=== PATIENT | male | born 1955 | race Caucasian/White ===

== ENCOUNTER 2016-09-30 13:18 | Outpatient (CLI) | payer MEDICARE, BC ==
[2016-09-30 14:08] LABS: MEAN CORPUSCULAR HEMOGLOBIN 33.9 pg (27.0-33.4); MEAN CORPUSCULAR HGB CONC 34.6 g/dL (32.0-36.0); MEAN CORPUSCULAR VOLUME 98 fl (80-97); RED BLOOD COUNT 2.34 10^6/uL (4.35-5.55); RED CELL DISTRIBUTION WIDTH 17.5 % (11.5-14.0); WHITE BLOOD COUNT 3.8 10^3/uL (4.0-10.5)
[2016-09-30] MEDS ORDERED: ACETAMINOPHEN 325 MG TABLET PO PRN (14:21)
[2016-09-30] MEDS ORDERED: NORMAL SALINE 1000 ML 1,000 ML IV PRN (14:22)
[2016-09-30] MEDS ORDERED: NORMAL SALINE 10 ML SDV (AFTER EACH USE) IV PRN (14:23)
[2016-09-30] MEDS ORDERED: DIPHENHYDRAMINE HCL 25 MG CAPSULE PO PRN (14:24)
[2016-09-30] MEDS ORDERED: FUROSEMIDE INJ/PF 20 MG/2 ML SDV IV SCH (14:30)
[2016-09-30] MEDS ORDERED: NORMAL SALINE 10 ML SDV (SCHEDULED) IV SCH (22:00)
[2016-09-30] MEDS ORDERED: ALBUTEROL SULFATE HFA (90 MCG/PUFF) 200 PUFF/8.5 GM MDI IH PRN (22:13)
[2016-09-30] MEDS ORDERED: ALBUTEROL SULFATE HFA (90 MCG/PUFF) 200 PUFF/8.5 GM MDI IH ONE (22:16)
[2016-09-30 23:52] VITALS: BP 107/64
== END 2016-10-01 00:10 | disposition home or self-care (01) ==
LOC: LAB 13:18 → 2N 13:21 → LAB 10-01 00:10
PROVIDERS: ATTEND Specialist
PROC: 30243R1 Transfusion of Nonautologous Platelets into Central Vein, Percutaneous Approach (ICD-10-PCS; principal; 2016-09-30)
DX: D64.9 Anemia, unspecified (principal); C34.91 Malignant neoplasm of unspecified part of right bronchus or lung
CPT/HCPCS: 86900; 86901; 36415; 36430; 86850; 86920; P9016; P9035; A9270; J1642; J3490

== ENCOUNTER → 2016-10-12 | Outpatient (CLI) | payer MEDICARE, BC | LOC: RAD 11:35 | PROVIDERS: ATTEND Specialist | DX: C34.91 Malignant neoplasm of unspecified part of right bronchus or lung (principal) | CPT/HCPCS: 82565; 72158; A9577 ==

== ENCOUNTER 2016-10-16 07:04 | Emergency (ER) | payer MEDICARE, BC ==
[2016-10-16] MEDS ORDERED: MORPHINE SULFATE 10 MG/ML INJ IV ONE ×2 (07:55→09:20)
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
[2016-10-16 08:55] LABS: ABSOLUTE LYMPHOCYTES (AUTO) 0.9 10^3/uL (0.5-4.7); ABSOLUTE MONOCYTES (AUTO) 0.6 10^3/uL (0.1-1.4); ABSOLUTE NEUT (AUTO) 3.2 10^3/uL (1.7-8.2); BASOPHILS % (AUTO) 0.2 % (0-2); EOSINOPHILS % (AUTO) 0.3 % (0-6); HEMATOCRIT 30.5 % (37.9-51.0); HEMOGLOBIN 10.1 g/dL (13.5-17.0); HGB HCT DIFFERENCE -0.2; LYMPHOCYTES % (AUTO) 18.2 % (13-45); MEAN CORPUSCULAR HEMOGLOBIN 32.9 pg (27.0-33.4); MEAN CORPUSCULAR VOLUME 100 fl (80-97); MONOCYTES % (AUTO) 13.7 % (3-13); RED BLOOD COUNT 3.06 10^6/uL (4.35-5.55); RED CELL DISTRIBUTION WIDTH 17.7 % (11.5-14.0); SEGMENTED NEUTROPHILS % (AUTO) 67.6 % (42-78); WHITE BLOOD COUNT 4.8 10^3/uL (4.0-10.5)
[2016-10-16 09:09] LABS: ALANINE AMINOTRANSFERASE 63 U/L (21-72); ALBUMIN 2.8 g/dL (3.5-5.0); ALKALINE PHOSPHATASE 304 U/L (38-126); ANION GAP 8 (5-19); ASPARTATE AMINO TRANSFERASE 107 U/L (17-59); BILIRUBIN,TOTAL 1.9 mg/dL (0.2-1.3); BLOOD UREA NITROGEN 14 mg/dL (7-20); CALCIUM 9.2 mg/dL (8.4-10.2); CARBON DIOXIDE 25 mmol/L (22-30); CHLORIDE 106 mmol/L (98-107); CREATININE RESULT 0.58 mg/dL (0.52-1.25); GLUCOSE 120 mg/dL (75-110); LIPASE 148.9 U/L (23-300); MAGNESIUM 1.6 mg/dL (1.6-2.3); SODIUM 138.5 mmol/L (137-145); TOTAL PROTEIN 6.5 g/dL (6.3-8.2)
[2016-10-16] MEDS ORDERED: DEXAMETHASONE SOD PHOS INJ 10 MG/1 ML VIAL IV ONE (09:21)
[2016-10-16 10:36] VITALS: BP 137/68
--- NOTE | 2016-10-16 11:02 | EKG REPORT ---
SEVERITY:- NORMAL ECG - SINUS RHYTHM : Confirmed by: Oumar Calderón MD 16-Oct-2016 11:01:28
== END 2016-10-16 10:35 | disposition home or self-care (01) ==
LOC: ER 07:04
DX: G89.29 Other chronic pain (principal); M54.5 Low back pain; M25.562 Pain in left knee; R10.10 Upper abdominal pain, unspecified; F11.23 Opioid dependence with withdrawal; C78.7 Secondary malignant neoplasm of liver and intrahepatic bile duct; C79.51 Secondary malignant neoplasm of bone; I10 Essential (primary) hypertension; J44.9 Chronic obstructive pulmonary disease, unspecified; Z96.652 Presence of left artificial knee joint; Z86.19 Personal history of other infectious and parasitic diseases; Z87.442 Personal history of urinary calculi; Z85.118 Personal history of other malignant neoplasm of bronchus and lung; Z85.05 Personal history of malignant neoplasm of liver
CPT/HCPCS: 93005; 36591; 96376; 99284; 96374; 96375; 36415; 87040; 83690; 83735; 85025; 80053; 71010; 93010; J2270; J1100

== ENCOUNTER → 2016-11-04 | Outpatient (CLI) | payer MEDICARE, BC | LOC: OD 11:22 | PROVIDERS: ATTEND Specialist | DX: R07.9 Chest pain, unspecified (principal); R06.02 Shortness of breath | CPT/HCPCS: 71020 ==

== ENCOUNTER 2016-11-15 12:55 | Inpatient (IN) | payer MEDICARE, BC ==
[2016-11-15] MEDS ORDERED: OXYCODONE HCL IR 5 MG TABLET PO PRN (13:48)
[2016-11-15] MEDS: OXYCODONE HCL IR 5 MG TABLET PO PRN ×2 (14:29→18:27)
[2016-11-15 14:43] LABS: HEMATOCRIT 28.5 % (37.9-51.0); HEMOGLOBIN 9.6 g/dL (13.5-17.0); HGB HCT DIFFERENCE 0.3; MEAN CORPUSCULAR HEMOGLOBIN 34.5 pg (27.0-33.4); MEAN CORPUSCULAR HGB CONC 33.7 g/dL (32.0-36.0); MEAN CORPUSCULAR VOLUME 103 fl (80-97); RED BLOOD COUNT 2.78 10^6/uL (4.35-5.55); RED CELL DISTRIBUTION WIDTH 17.5 % (11.5-14.0); WHITE BLOOD COUNT 6.9 10^3/uL (4.0-10.5)
[2016-11-15] MEDS ORDERED: OXYCODONE HCL SR 40 MG TABLET PO ONE (14:45)
[2016-11-15] MEDS ORDERED: OXYCODONE HCL SR 10 MG TABLET PO ONE (14:45)
[2016-11-15] MEDS: PROMETHAZINE HCL INJ 25 MG/1 ML VIAL IV PRN (14:50)
[2016-11-15] MEDS: NORMAL SALINE 1000 ML 1,000 ML IV PRN (14:50)
[2016-11-15 15:11] LABS: ANION GAP 5 (5-19); BLOOD UREA NITROGEN 16 mg/dL (7-20); CALCIUM 8.9 mg/dL (8.4-10.2); CARBON DIOXIDE 28 mmol/L (22-30); CHLORIDE 104 mmol/L (98-107); CREATININE RESULT 0.64 mg/dL (0.52-1.25); GLUCOSE 214 mg/dL (75-110); MAGNESIUM 1.7 mg/dL (1.6-2.3); POTASSIUM 4.6 mmol/L (3.6-5.0); SODIUM 136.7 mmol/L (137-145)
[2016-11-15 15:16] LABS: BAND NEUTROPHILS % (MANUAL) 7 % (3-5); BASOPHILS % (MANUAL) 0 % (0-2); EOSINOPHILS % (MANUAL) 0 % (0-6); LYMPHOCYTES % (MANUAL) 1 % (13-45); TOTAL CELLS COUNTED 100
[2016-11-15 15:17] LABS: ANISOCYTOSIS 2+; HYPOCHROMASIA SLIGHT; OVALOCYTES SLIGHT; POIKILOCYTOSIS 1+; POLYCHROMASIA SLIGHT; SCHISTOCYTES SLIGHT; TOXIC GRANULATION 2+
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
[2016-11-15] MEDS ORDERED: FENTANYL 25 MCG/HR PATCH.TD72 TOP ONE (17:00)
[2016-11-15] MEDS ORDERED: PANTOPRAZOLE SODIUM 40 MG VIAL IV ONE (17:00)
[2016-11-15] MEDS: LORAZEPAM 1 MG TABLET PO SCH (18:27)
[2016-11-15] MEDS: DEXAMETHASONE SOD PHOSPHATE INJ 4 MG/1 ML VIAL IV SCH (18:27)
[2016-11-15] MEDS: OXYCODONE HCL SR 40 MG TABLET PO SCH (19:47)
[2016-11-15] MEDS: OXYCODONE HCL SR 10 MG TABLET PO SCH (19:48)
[2016-11-15] MEDS: ZOLPIDEM TARTRATE 5 MG TABLET PO SCH (21:41)
[2016-11-15] MEDS ORDERED: (PENDING PHARMACY ID) (Zolpidem Tartrate [Ambien] 10 MG) PO SCH (22:00)
[2016-11-16] MEDS: DEXAMETHASONE SOD PHOSPHATE INJ 4 MG/1 ML VIAL IV SCH ×4 (00:14→18:09)
[2016-11-16] MEDS: NORMAL SALINE 1000 ML 1,000 ML IV PRN ×2 (00:14→05:09)
[2016-11-16] MEDS: LORAZEPAM 1 MG TABLET PO SCH ×4 (00:14→18:08)
[2016-11-16] MEDS: OXYCODONE HCL IR 5 MG TABLET PO PRN ×6 (00:22→19:52)
[2016-11-16] MEDS: LORAZEPAM INJ 2 MG/1 ML VIAL IV PRN ×3 (01:34→19:46)
[2016-11-16] MEDS: IPRATROPIUM/ALBUTEROL 0.5-2.5 MG/3 ML AMPUL NEB PRN ×2 (05:23→12:43)
[2016-11-16] MEDS: OXYCODONE HCL SR 10 MG TABLET PO SCH ×2 (09:37→19:50)
[2016-11-16] MEDS: OXYCODONE HCL SR 40 MG TABLET PO SCH ×2 (09:38→19:49)
[2016-11-16] MEDS: PANTOPRAZOLE SODIUM 40 MG VIAL IV SCH ×2 (09:39→21:20)
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
[2016-11-16 12:20] LABS: LIPASE 296.3 U/L (23-300)
--- NOTE | 2016-11-16 15:18 | PDOC PROGRESS REPORT ---
Subjective Progress Note for:: 11/16/16 Subjective:: Reason for visit: Follow-up intractable nausea and vomiting, abdominal pain Hospital course: Per H&P "LORRAINE LUTZ is a 61 year old male Was sent as a direct admission from Dr. 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 He underwent CT scan of the chest abdomen and pelvis with findings of probable liver metastases, splenomegaly, mild ascites and diffuse osseous metastatic disease throughout the pelvis and vertebrae; interval decrease in size of the right hilar mass and aortopulmonary lymph nodes but interval increase in size of the right pleural effusion and right axillary lymph nodes with interval development of bony metastatic disease throughout the ribs. Subjective: Overall the patient states he feels much better than when he came in in fact has eaten 2 meals so far today of solid food and kept everything down. He does get short of breath with minimal exertion. He is extremely emotionally labile, often tearful when discussing his situation with nursing staff and myself. He is clearly struggling with how to proceed in the management of his disease, at times telling the staff he wants to go home with hospice and just pain control but for me indicated he wanted everything done in an effort to extend his life for as long as possible to spend as much time with his grandson as he can. He currently denies chest pain, palpitations, diarrhea , nausea vomiting, numbness tingling, headache, vision changes. ROS: per HPI plus a total of 10 systems reviewed, pertinent positives and negatives noted above, remaining systems negative. Physical Exam Vital Signs: Temp Pulse Resp BP Pulse Ox 97.6 F 88 15 129/73 H 97 11/16/16 11:17 11/16/16 12:43 11/16/16 12:43 11/16/16 11:17 11/16/16 11:17 Intake & Output 11/15/16 11/16/16 11/17/16 06:59 06:59 06:59 Intake Total 3429 Output Total 900 Balance 2529 Weight 93.5 kg Results Laboratory Results: 11/15/16 14:08 11/15/16 14:08 11/15/16 11/15/16 11/16/16 14:08 14:08 11:55 WBC 6.9 RBC 2.78 L Hgb 9.6 L Hct 28.5 L MCV 103 H MCH 34.5 H MCHC 33.7 RDW 17.5 H Plt Count 23 L* Seg Neutrophils % Not Reportable Lymphocytes % Not Reportable Monocytes % Not Reportable Eosinophils % Not Reportable Basophils % Not Reportable Absolute Neutrophils Not Reportable Absolute Lymphocytes Not Reportable Absolute Monocytes Not Reportable Absolute Eosinophils Not Reportable Absolute Basophils Not Reportable Sodium 136.7 L Potassium 4.6 Chloride 104 Carbon Dioxide 28 Anion Gap 5 BUN 16 Creatinine 0.64 Est GFR ( Amer) > 60 Est GFR (Non-Af Amer) > 60 Glucose 214 H Calcium 8.9 Magnesium 1.7 Amylase 65 Lipase 296.3 Labs reviewed, H&H holding, renal function only. Impressions: Chest X-Ray 11/15/16 16:01 IMPRESSION: Moderate lung volumes. Mild interstitial prominence without suspicious interval change. KUB X-Ray 11/15/16 16:01 IMPRESSION: Stable. Abdomen/Pelvis CT 11/16/16 06:00 IMPRESSION: 1. Suspicious appearance of the liver, heterogeneous with potential underlying metastases, mild edema and duct dilatation. 2. Hepatomegaly. 3. Mild ascites. 4. Osseous metastatic disease. Chest CT 11/16/16 06:00 IMPRESSION: Interval decrease in size the previously described right hilar mass as noted above. There is also been interval decrease in size of the multiple aortopulmonary window lymph nodes. Interval increase in size of the right pleural effusion. Interval increase in size of 1 of the right axillary lymph nodes as noted above. Interval development of bony metastatic disease as noted above. Other findings as noted above Head CT 11/16/16 06:00 IMPRESSION: MILD CHRONIC CHANGES OF ATROPHY AND MICROVASCULAR ISCHEMIA. NO ACUTE PROCESS. Status: Imported from PACS - Reports reviewed Assessment & Plan - Diagnosis (1) Dehydration Is this a current diagnosis for this admission?: YesPlan: Improved. Continue IV fluids and increase oral intake. (2) Intractable nausea and vomiting Qualifiers: Vomiting type: unspecified Qualified Code(s): R11.2 - Nausea with vomiting, unspecified Is this a current diagnosis for this admission?: YesPlan: Unclear etiology, seems resolved. Possibly related to chronic high-dose narcotic use. (3) Metastatic cancer Is this a current diagnosis for this admission?: YesPlan: Imaging confirms widely metastatic disease, with worsening axillary adenopathy and presumed malignant pleural effusion. Patient would like to proceed with thoracentesis, states he's had this done over a year ago and had a remarkable improvement in his overall condition. He is hopeful for similar result this time. This of course is complicated by his severe thrombocytopenia, see below. (4) Thrombocytopenia Is this a current diagnosis for this admission?: YesPlan: Check a CBC this afternoon and transfuse platelets if needed to increase greater than 50,000 in anticipation of thoracentesis tomorrow. (5) Continuous severe abdominal pain Is this a current diagnosis for this admission?: YesPlan: Persistent but mild. Possibly related to his metastatic disease. (6) DNR (do not resuscitate) Is this a current diagnosis for this admission?: YesPlan: Per patient's wishes - Time Time Spent with patient: 35 or more minutes Medications reviewed and adjusted accordingly: Yes Anticipated discharge: Home Within: within 48 hours
--- NOTE | 2016-11-16 15:51 | PDOC PROGRESS REPORT ---
Subjective Progress Note for:: 11/16/16 Subjective:: Nausea and vomiting are markedly improved. Please see his note sent over from the office from yesterday for details with regards to mets.He has been able to keep down his food today. Physical Exam Vital Signs: Temp Pulse Resp BP Pulse Ox 97.6 F 106 H 15 129/73 H 97 11/16/16 11:17 11/16/16 14:00 11/16/16 12:43 11/16/16 11:17 11/16/16 11:17 Intake & Output 11/15/16 11/16/16 11/17/16 06:59 06:59 06:59 Intake Total 3429 Output Total 900 Balance 2529 Weight 93.5 kg General appearance: PRESENT: mild distress Head exam: PRESENT: normocephalic Eye exam: PRESENT: EOMI, scleral icterus Ear exam: PRESENT: normal external ear exam Mouth exam: PRESENT: moist Teeth exam: PRESENT: edentulous Respiratory exam: PRESENT: rhonchi - Occ'l Cardiovascular exam: PRESENT: RRR GI/Abdominal exam: PRESENT: distended, soft Extremities exam: PRESENT: other - Left knee with replaced part malfuntion Neurological exam: PRESENT: alert, awake, CN II-XII grossly intact Psychiatric exam: PRESENT: flat affect Results Laboratory Results: 11/15/16 14:08 11/15/16 14:08 11/15/16 11/16/16 14:08 11:55 WBC 6.9 RBC 2.78 L Hgb 9.6 L Hct 28.5 L MCV 103 H MCH 34.5 H MCHC 33.7 RDW 17.5 H Plt Count 23 L* Amylase 65 Lipase 296.3 Impressions: Chest X-Ray 11/15/16 16:01 IMPRESSION: Moderate lung volumes. Mild interstitial prominence without suspicious interval change. KUB X-Ray 11/15/16 16:01 IMPRESSION: Stable. Abdomen/Pelvis CT 11/16/16 06:00 IMPRESSION: 1. Suspicious appearance of the liver, heterogeneous with potential underlying metastases, mild edema and duct dilatation. 2. Hepatomegaly. 3. Mild ascites. 4. Osseous metastatic disease. Chest CT 11/16/16 06:00 IMPRESSION: Interval decrease in size the previously described right hilar mass as noted above. There is also been interval decrease in size of the multiple aortopulmonary window lymph nodes. Interval increase in size of the right pleural effusion. Interval increase in size of 1 of the right axillary lymph nodes as noted above. Interval development of bony metastatic disease as noted above. Other findings as noted above Head CT 11/16/16 06:00 IMPRESSION: MILD CHRONIC CHANGES OF ATROPHY AND MICROVASCULAR ISCHEMIA. NO ACUTE PROCESS. Assessment & Plan - Diagnosis (1) DNR (do not resuscitate) Is this a current diagnosis for this admission?: YesPlan: Per Mr. Fraga's wishes. (2) Dehydration Is this a current diagnosis for this admission?: YesPlan: Resolving so would decrease fluids due to his low protein and risk of 3rd spacing (3) History of hepatitis C Is this a current diagnosis for this admission?: YesPlan: Has lead to cirrhosis and splenomegaly with chronic pancytopenia (4) Intractable nausea and vomiting Qualifiers: Vomiting type: unspecified Qualified Code(s): R11.2 - Nausea with vomiting, unspecified Is this a current diagnosis for this admission?: YesPlan: Improved on current regiment (5) Metastatic cancer Is this a current diagnosis for this admission?: YesPlan: Scans are overall improved except increased right effusion and ? liver. Would proceed with thoracentesis (6) Thrombocytopenia Is this a current diagnosis for this admission?: YesPlan: Would transfuse for thoracentesis. (7) Knee arthropathy Plan: Conservative - Time Time Spent with patient: 35 or more minutes Critical Time spent with patient: 25-34 minutes Medications reviewed and adjusted accordingly: Yes - Inpatient Certification Medical Necessity: Need For Continuous Telemetry Monitoring
[2016-11-16 17:18] LABS: HEMATOCRIT 25.9 % (37.9-51.0); HEMOGLOBIN 8.9 g/dL (13.5-17.0); HGB HCT DIFFERENCE 0.8; MEAN CORPUSCULAR HEMOGLOBIN 35.2 pg (27.0-33.4); MEAN CORPUSCULAR HGB CONC 34.3 g/dL (32.0-36.0); MEAN CORPUSCULAR VOLUME 103 fl (80-97); RED BLOOD COUNT 2.52 10^6/uL (4.35-5.55); RED CELL DISTRIBUTION WIDTH 17.1 % (11.5-14.0); WHITE BLOOD COUNT 5.8 10^3/uL (4.0-10.5)
[2016-11-16 17:41] LABS: PROTHROMBIN TIME 17.4 SEC (11.4-15.4)
[2016-11-16 17:52] LABS: BAND NEUTROPHILS % (MANUAL) 8 % (3-5); BASOPHILS % (MANUAL) 0 % (0-2); EOSINOPHILS % (MANUAL) 0 % (0-6); LYMPHOCYTES % (MANUAL) 5 % (13-45); TOTAL CELLS COUNTED 100
[2016-11-16 17:58] LABS: BURR CELLS SLIGHT; OVALOCYTES SLIGHT; POIKILOCYTOSIS SLIGHT; TARGET CELLS SLIGHT; TEAR DROP CELLS SLIGHT
[2016-11-16 17:59] LABS: ANISOCYTOSIS 1+
[2016-11-16] MEDS: PROMETHAZINE HCL INJ 25 MG/1 ML VIAL IV PRN ×2 (18:08→23:09)
[2016-11-16] MEDS: ZOLPIDEM TARTRATE 5 MG TABLET PO SCH (21:20)
[2016-11-17] MEDS ORDERED: MORPHINE SULFATE 10 MG/ML INJ IV PRN (00:15)
[2016-11-17 00:22] LABS: ALANINE AMINOTRANSFERASE 52 U/L (21-72); ALBUMIN 2.7 g/dL (3.5-5.0); ALKALINE PHOSPHATASE 205 U/L (38-126); ANION GAP 9 (5-19); ASPARTATE AMINO TRANSFERASE 48 U/L (17-59); BILIRUBIN,TOTAL 1.3 mg/dL (0.2-1.3); BLOOD UREA NITROGEN 19 mg/dL (7-20); CARBON DIOXIDE 24 mmol/L (22-30); CHLORIDE 107 mmol/L (98-107); CREATININE RESULT 0.63 mg/dL (0.52-1.25); GLUCOSE 128 mg/dL (75-110); POTASSIUM 4.3 mmol/L (3.6-5.0); SODIUM 139.9 mmol/L (137-145); TOTAL PROTEIN 6.5 g/dL (6.3-8.2)
[2016-11-17] MEDS: DEXAMETHASONE SOD PHOSPHATE INJ 4 MG/1 ML VIAL IV SCH ×5 (00:25→23:15)
[2016-11-17] MEDS: LORAZEPAM 1 MG TABLET PO SCH (00:38)
[2016-11-17] MEDS: LORAZEPAM INJ 2 MG/1 ML VIAL IV PRN ×3 (01:25→23:14)
[2016-11-17] MEDS: PROMETHAZINE HCL INJ 25 MG/1 ML VIAL IV PRN (05:14)
[2016-11-17] MEDS: MORPHINE SULFATE 10 MG/ML INJ IV PRN ×5 (05:31→23:14)
[2016-11-17 06:21] LABS: HEMATOCRIT 25.5 % (37.9-51.0); HEMOGLOBIN 8.8 g/dL (13.5-17.0); HGB HCT DIFFERENCE 0.9; WHITE BLOOD COUNT 5.7 10^3/uL (4.0-10.5)
[2016-11-17 06:27] LABS: MEAN CORPUSCULAR HEMOGLOBIN 34.8 pg (27.0-33.4); MEAN CORPUSCULAR HGB CONC 34.6 g/dL (32.0-36.0); MEAN CORPUSCULAR VOLUME 101 fl (80-97); RED BLOOD COUNT 2.54 10^6/uL (4.35-5.55); RED CELL DISTRIBUTION WIDTH 16.7 % (11.5-14.0)
[2016-11-17 06:39] LABS: ALANINE AMINOTRANSFERASE 55 U/L (21-72); ALBUMIN 2.9 g/dL (3.5-5.0); ALKALINE PHOSPHATASE 190 U/L (38-126); ANION GAP 9 (5-19); ASPARTATE AMINO TRANSFERASE 49 U/L (17-59); BILIRUBIN,TOTAL 1.8 mg/dL (0.2-1.3); BLOOD UREA NITROGEN 20 mg/dL (7-20); CALCIUM 9.2 mg/dL (8.4-10.2); CARBON DIOXIDE 25 mmol/L (22-30); CHLORIDE 109 mmol/L (98-107); CREATININE RESULT 0.61 mg/dL (0.52-1.25); GLUCOSE 121 mg/dL (75-110); LIPASE 152.6 U/L (23-300); MAGNESIUM 1.8 mg/dL (1.6-2.3); PHOSPHORUS 3.6 mg/dL (2.5-4.5); POTASSIUM 4.5 mmol/L (3.6-5.0); SODIUM 142.5 mmol/L (137-145); TOTAL PROTEIN 6.1 g/dL (6.3-8.2)
[2016-11-17 06:47] LABS: BASOPHILS % (MANUAL) 0 % (0-2); EOSINOPHILS % (MANUAL) 0 % (0-6); LYMPHOCYTES % (MANUAL) 12 % (13-45); TOTAL CELLS COUNTED 100
[2016-11-17 06:50] LABS: ANISOCYTOSIS 1+; TOXIC GRANULATION 1+
[2016-11-17 06:52] LABS: BAND NEUTROPHILS % (MANUAL) 8 % (3-5)
[2016-11-17] MEDS: PANTOPRAZOLE SODIUM 40 MG VIAL IV SCH ×2 (09:40→21:34)
--- NOTE | 2016-11-17 11:32 | PDOC PROGRESS REPORT ---
Subjective Progress Note for:: 11/17/16 Subjective:: Reason for visit: Follow-up intractable nausea and vomiting, abdominal pain Hospital course: Per H&P "LORRAINE LUTZ is a 61 year old male Was sent as a direct admission from Dr. 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 He underwent CT scan of the chest abdomen and pelvis with findings of probable liver metastases, splenomegaly, mild ascites and diffuse osseous metastatic disease throughout the pelvis and vertebrae; interval decrease in size of the right hilar mass and aortopulmonary lymph nodes but interval increase in size of the right pleural effusion and right axillary lymph nodes with interval development of bony metastatic disease throughout the ribs. initially the patient felt much better than when he came in, in fact ate 2 meals of solid food and kept everything down. He c/o'd short of breath with minimal exertion. He was extremely emotionally labile, often tearful when discussing his situation with nursing staff and myself. He is clearly struggling with how to proceed in the management of his disease, at times telling the staff he wants to go home with hospice and just pain control but for me indicated he wanted everything done in an effort to extend his life for as long as possible to spend as much time with his grandson as he can. Subjective: The patient had an eventful night with a significant turn for the worse regarding his mentation. He became combative, confused and noncooperative with staff so much so that he required physical and pharmaceutical restraints to keep him from harming himself and others. Nursing now reports through the course of the afternoon yesterday he showed a steady decline in his mental state with increasing confusion and extreme emotional lability. He received a dose of Ativan just prior to my arrival and is currently sedated and unable to participate in his physical exam or review of systems. ROS: Unobtainable due to mental state. Physical Exam Vital Signs: Temp Pulse Resp BP Pulse Ox 98.1 F 107 H 18 150/79 H 97 11/17/16 07:48 11/17/16 07:48 11/17/16 07:48 11/17/16 07:48 11/17/16 07:48 Intake & Output 11/16/16 11/17/16 11/18/16 06:59 06:59 06:59 Intake Total 3429 951 Output Total 900 Balance 2529 951 Weight 93.5 kg 94.2 kg EXAM GENERAL: Sedated; well developed, well nourished; no obese; nonverbal HEENT: normocephalic, atraumatic; no conjunctival injection, no scleral icterus ; oral mucosa moist; RESPIRATORY: no accessory muscle use, no increased WOB, diminished air entry bilaterally; no wheezes, rales, rhonchi; bilateral right greater than left inspiratory crackles CARDIO: no JVD; RRR; no systolic murmur; tachycardia regular GI: soft; nondistended; normal bowel sounds; no rebound, rigidity, guarding; no grimace to palpation VASCULAR: no carotid bruit; no abdominal bruit; no pallor; 2+ radial, DP pulse ; normal capillary refill EXTREMITIES: no calf tender; no palpable cords in calf; no clubbing, cyanosis , pedal edema PSYCH: Attended SKIN: warm; moist; no petechiae; no telengectasias; no jaundice; no rash NEURO: Moves all 4 extremities but will not follow commands, seems to track me around the room implying extraocular muscles intact, 2+ bilateral patellar reflexes, intact blink and gag reflex Results Laboratory Results: 11/17/16 05:20 11/17/16 05:20 11/15/16 11/16/16 11/16/16 14:08 11:55 17:03 WBC 6.9 5.8 RBC 2.78 L 2.52 L Hgb 9.6 L 8.9 L Hct 28.5 L 25.9 L MCV 103 H 103 H MCH 34.5 H 35.2 H MCHC 33.7 34.3 RDW 17.5 H 17.1 H Plt Count 23 L* 17 L* Seg Neutrophils % Not Reportable Lymphocytes % Not Reportable Monocytes % Not Reportable Eosinophils % Not Reportable Basophils % Not Reportable Absolute Neutrophils Not Reportable Absolute Lymphocytes Not Reportable Absolute Monocytes Not Reportable Absolute Eosinophils Not Reportable Absolute Basophils Not Reportable Sodium Potassium Chloride Carbon Dioxide Anion Gap BUN Creatinine Est GFR ( Amer) Est GFR (Non-Af Amer) Glucose Calcium Phosphorus Magnesium Total Bilirubin AST ALT Alkaline Phosphatase Total Protein Albumin Amylase 65 Lipase 296.3 Blood Type Antibody Screen 11/16/16 11/16/16 11/16/16 17:03 23:55 23:55 WBC RBC Hgb Hct MCV MCH MCHC RDW Plt Count Seg Neutrophils % Lymphocytes % Monocytes % Eosinophils % Basophils % Absolute Neutrophils Absolute Lymphocytes Absolute Monocytes Absolute Eosinophils Absolute Basophils Sodium 139.9 Potassium 4.3 Chloride 107 Carbon Dioxide 24 Anion Gap 9 BUN 19 Creatinine 0.63 Est GFR ( Amer) > 60 Est GFR (Non-Af Amer) > 60 Glucose 128 H Calcium 9.0 Phosphorus Magnesium Cancelled 1.8 Total Bilirubin 1.3 AST 48 ALT 52 Alkaline Phosphatase 205 H Total Protein 6.5 Albumin 2.7 L Amylase Lipase Blood Type O POSITIVE Antibody Screen NEGATIVE 11/17/16 11/17/16 05:20 05:20 WBC 5.7 RBC 2.54 L Hgb 8.8 L Hct 25.5 L MCV 101 H MCH 34.8 H MCHC 34.6 RDW 16.7 H Plt Count 17 L* Seg Neutrophils % Not Reportable Lymphocytes % Not Reportable Monocytes % Not Reportable Eosinophils % Not Reportable Basophils % Not Reportable Absolute Neutrophils Not Reportable Absolute Lymphocytes Not Reportable Absolute Monocytes Not Reportable Absolute Eosinophils Not Reportable Absolute Basophils Not Reportable Sodium 142.5 Potassium 4.5 Chloride 109 H Carbon Dioxide 25 Anion Gap 9 BUN 20 Creatinine 0.61 Est GFR ( Amer) > 60 Est GFR (Non-Af Amer) > 60 Glucose 121 H Calcium 9.2 Phosphorus 3.6 Magnesium 1.8 Total Bilirubin 1.8 H AST 49 ALT 55 Alkaline Phosphatase 190 H Total Protein 6.1 L Albumin 2.9 L Amylase Lipase 152.6 Blood Type Antibody Screen Labs reviewed, no change in his CBC, renal function still good and electrolytes unremarkable. Impressions: Chest X-Ray 11/15/16 16:01 IMPRESSION: Moderate lung volumes. Mild interstitial prominence without suspicious interval change. KUB X-Ray 11/15/16 16:01 IMPRESSION: Stable. Abdomen/Pelvis CT 11/16/16 06:00 IMPRESSION: 1. Suspicious appearance of the liver, heterogeneous with potential underlying metastases, mild edema and duct dilatation. 2. Hepatomegaly. 3. Mild ascites. 4. Osseous metastatic disease. Chest CT 11/16/16 06:00 IMPRESSION: Interval decrease in size the previously described right hilar mass as noted above. There is also been interval decrease in size of the multiple aortopulmonary window lymph nodes. Interval increase in size of the right pleural effusion. Interval increase in size of 1 of the right axillary lymph nodes as noted above. Interval development of bony metastatic disease as noted above. Other findings as noted above Head CT 11/16/16 06:00 IMPRESSION: MILD CHRONIC CHANGES OF ATROPHY AND MICROVASCULAR ISCHEMIA. NO ACUTE PROCESS. Abdomen X-Ray 11/17/16 00:00 IMPRESSION: NO RADIOGRAPHIC EVIDENCE FOR ACUTE ABDOMINAL DISEASE. Status: Imported from PACS Assessment & Plan - Diagnosis (1) Acute metabolic encephalopathy Is this a current diagnosis for this admission?: YesPlan: Unclear etiology. CT scan of the head chest abdomen and pelvis yesterday once again reviewed and showed no acute intracranial abnormality and no obvious mass or midline shift to suggest metastatic disease, however does have at least moderate microvascular disease and atrophy perhaps predisposing to the onset of encephalopathy. I suspected is related somehow to metabolic derangements associated with his liver disease. He does have markedly elevated MCV so we will check folate and B12. He has known hepatitis C with cirrhosis and suspected metastatic disease to his liver with pancytopenia and in particular a severely low thrombocytopenia and borderline INR, so will check ammonia level and lactic acid. If he fails to improve or decompensates further will need more advanced imaging of the brain as he is at risk for intracranial hemorrhage , small metastatic disease not evident on CT scanning. At present, he is too uncooperative to allow invasive procedure like lumbar puncture or prolonged procedure like MRI of the brain. Continue supportive care for now. (2) Dehydration Is this a current diagnosis for this admission?: YesPlan: Improved. Continue IV fluids and increase oral intake. (3) Intractable nausea and vomiting Qualifiers: Vomiting type: unspecified Qualified Code(s): R11.2 - Nausea with vomiting, unspecified Is this a current diagnosis for this admission?: YesPlan: Unclear etiology. Resolved (4) Metastatic cancer Is this a current diagnosis for this admission?: YesPlan: Imaging confirms widely metastatic disease, with worsening axillary adenopathy and presumed malignant pleural effusion. Patient would like to proceed with thoracentesis, states he's had this done over a year ago and had a remarkable improvement in his overall condition but his clinical deterioration and severe thrombocytopenia prevent invasive studies at this time. (5) Thrombocytopenia Is this a current diagnosis for this admission?: YesPlan: Dr. Conrad following and ordered transfusion of platelets, defer to her expertise regarding possibility of ITP/TTP in the setting of worsening mental state. (6) Continuous severe abdominal pain Is this a current diagnosis for this admission?: YesPlan: Difficult to assess at this time but no clear indication for persistent pain, clouded by his current mental state. CT of the abdomen and pelvis was reassuring for acute pathology, worrisome only for persistent metastatic disease. (7) DNR (do not resuscitate) Is this a current diagnosis for this admission?: YesPlan: Per patient's wishes. My conversations with the patient yesterday indicated he was waffling on whether to proceed with hospice, nursing staff reports multiple family members arrived last night and his son in particular is supportive of a change to hospice care. Given the extensive nature of his disease and now this sudden decline, if he fails to improve then hospice would seem entirely appropriate. - Time Time Spent with patient: 25-34 minutes
[2016-11-17 12:19] LABS: ARTERIAL BLOOD BASE EXCESS 1.6 mmol/L; ARTERIAL BLOOD O2 SATURATION 93.7 % (94-98)
[2016-11-17] MEDS: RINGERS SOLUTION,LACTATED 1,000 ML IV PRN ×2 (12:30→22:11)
--- NOTE | 2016-11-17 17:21 | PDOC PROGRESS REPORT ---
Subjective Progress Note for:: 11/17/16 Subjective:: Sedated this am and again this evening due to confusion and combativeness. Family at bedside at present time. After a lengthy discussion, they would like to consider an inpatient facility with hospice capabilities. Physical Exam Vital Signs: Temp Pulse Resp BP Pulse Ox 98.1 F 75 19 105/66 98 11/17/16 15:21 11/17/16 15:21 11/17/16 15:21 11/17/16 15:21 11/17/16 15:21 Intake & Output 11/16/16 11/17/16 11/18/16 06:59 06:59 06:59 Intake Total 3429 951 511 Output Total 900 925 Balance 2529 951 -414 Weight 93.5 kg 94.2 kg General appearance: PRESENT: disheveled Head exam: PRESENT: atraumatic, normocephalic, other - alopecia Ear exam: PRESENT: normal external ear exam Respiratory exam: PRESENT: unlabored, other - diminished at the right base Cardiovascular exam: PRESENT: RRR GI/Abdominal exam: PRESENT: normal bowel sounds, soft Neurological exam: PRESENT: altered, other - sedated Results Laboratory Results: 11/17/16 05:20 11/17/16 05:20 11/16/16 11/16/16 11/16/16 17:03 17:03 23:55 WBC 5.8 RBC 2.52 L Hgb 8.9 L Hct 25.9 L MCV 103 H MCH 35.2 H MCHC 34.3 RDW 17.1 H Plt Count 17 L* Seg Neutrophils % Not Reportable Lymphocytes % Not Reportable Monocytes % Not Reportable Eosinophils % Not Reportable Basophils % Not Reportable Absolute Neutrophils Not Reportable Absolute Lymphocytes Not Reportable Absolute Monocytes Not Reportable Absolute Eosinophils Not Reportable Absolute Basophils Not Reportable Carbonic Acid HCO3/H2CO3 Ratio ABG pH ABG pCO2 ABG pO2 ABG HCO3 ABG O2 Saturation ABG Base Excess FiO2 Sodium 139.9 Potassium 4.3 Chloride 107 Carbon Dioxide 24 Anion Gap 9 BUN 19 Creatinine 0.63 Est GFR ( Amer) > 60 Est GFR (Non-Af Amer) > 60 Glucose 128 H Lactic Acid Calcium 9.0 Phosphorus Magnesium Cancelled Total Bilirubin 1.3 AST 48 ALT 52 Alkaline Phosphatase 205 H Ammonia Total Protein 6.5 Albumin 2.7 L Lipase Vitamin B12 Folate Blood Type O POSITIVE Antibody Screen NEGATIVE 11/16/16 11/17/16 11/17/16 23:55 05:20 05:20 WBC 5.7 RBC 2.54 L Hgb 8.8 L Hct 25.5 L MCV 101 H MCH 34.8 H MCHC 34.6 RDW 16.7 H Plt Count 17 L* Seg Neutrophils % Not Reportable Lymphocytes % Not Reportable Monocytes % Not Reportable Eosinophils % Not Reportable Basophils % Not Reportable Absolute Neutrophils Not Reportable Absolute Lymphocytes Not Reportable Absolute Monocytes Not Reportable Absolute Eosinophils Not Reportable Absolute Basophils Not Reportable Carbonic Acid HCO3/H2CO3 Ratio ABG pH ABG pCO2 ABG pO2 ABG HCO3 ABG O2 Saturation ABG Base Excess FiO2 Sodium 142.5 Potassium 4.5 Chloride 109 H Carbon Dioxide 25 Anion Gap 9 BUN 20 Creatinine 0.61 Est GFR ( Amer) > 60 Est GFR (Non-Af Amer) > 60 Glucose 121 H Lactic Acid Calcium 9.2 Phosphorus 3.6 Magnesium 1.8 1.8 Total Bilirubin 1.8 H AST 49 ALT 55 Alkaline Phosphatase 190 H Ammonia Total Protein 6.1 L Albumin 2.9 L Lipase 152.6 Vitamin B12 Folate Blood Type Antibody Screen 11/17/16 11/17/16 11/17/16 11:55 14:30 14:30 WBC RBC Hgb Hct MCV MCH MCHC RDW Plt Count Seg Neutrophils % Lymphocytes % Monocytes % Eosinophils % Basophils % Absolute Neutrophils Absolute Lymphocytes Absolute Monocytes Absolute Eosinophils Absolute Basophils Carbonic Acid 1.25 HCO3/H2CO3 Ratio 20:1 ABG pH 7.42 ABG pCO2 41.4 ABG pO2 67.4 L ABG HCO3 26.2 H ABG O2 Saturation 93.7 L ABG Base Excess 1.6 FiO2 2L Sodium Potassium Chloride Carbon Dioxide Anion Gap BUN Creatinine Est GFR ( Amer) Est GFR (Non-Af Amer) Glucose Lactic Acid 1.4 Calcium Phosphorus Magnesium Total Bilirubin AST ALT Alkaline Phosphatase Ammonia 23.1 Total Protein Albumin Lipase Vitamin B12 Folate Blood Type Antibody Screen 11/17/16 14:30 WBC RBC Hgb Hct MCV MCH MCHC RDW Plt Count Seg Neutrophils % Lymphocytes % Monocytes % Eosinophils % Basophils % Absolute Neutrophils Absolute Lymphocytes Absolute Monocytes Absolute Eosinophils Absolute Basophils Carbonic Acid HCO3/H2CO3 Ratio ABG pH ABG pCO2 ABG pO2 ABG HCO3 ABG O2 Saturation ABG Base Excess FiO2 Sodium Potassium Chloride Carbon Dioxide Anion Gap BUN Creatinine Est GFR ( Amer) Est GFR (Non-Af Amer) Glucose Lactic Acid Calcium Phosphorus Magnesium Total Bilirubin AST ALT Alkaline Phosphatase Ammonia Total Protein Albumin Lipase Vitamin B12 > 1000.0 H Folate 10.60 Blood Type Antibody Screen Impressions: Chest X-Ray 11/15/16 16:01 IMPRESSION: Moderate lung volumes. Mild interstitial prominence without suspicious interval change. KUB X-Ray 11/15/16 16:01 IMPRESSION: Stable. Abdomen/Pelvis CT 11/16/16 06:00 IMPRESSION: 1. Suspicious appearance of the liver, heterogeneous with potential underlying metastases, mild edema and duct dilatation. 2. Hepatomegaly. 3. Mild ascites. 4. Osseous metastatic disease. Chest CT 11/16/16 06:00 IMPRESSION: Interval decrease in size the previously described right hilar mass as noted above. There is also been interval decrease in size of the multiple aortopulmonary window lymph nodes. Interval increase in size of the right pleural effusion. Interval increase in size of 1 of the right axillary lymph nodes as noted above. Interval development of bony metastatic disease as noted above. Other findings as noted above Head CT 11/16/16 06:00 IMPRESSION: MILD CHRONIC CHANGES OF ATROPHY AND MICROVASCULAR ISCHEMIA. NO ACUTE PROCESS. Abdomen X-Ray 11/17/16 00:00 IMPRESSION: NO RADIOGRAPHIC EVIDENCE FOR ACUTE ABDOMINAL DISEASE. Assessment & Plan - Diagnosis (1) DNR (do not resuscitate) Is this a current diagnosis for this admission?: YesPlan: Family is agreeing with his wishes and requesting an inpatient facility (2) Dehydration Is this a current diagnosis for this admission?: Yes (3) History of hepatitis C Is this a current diagnosis for this admission?: YesPlan: Affecting his counts (4) Intractable nausea and vomiting Qualifiers: Vomiting type: unspecified Qualified Code(s): R11.2 - Nausea with vomiting, unspecified Is this a current diagnosis for this admission?: YesPlan: Appears better but no po intake (5) Metastatic cancer Is this a current diagnosis for this admission?: YesPlan: Discussed mixed findings but overall poor prognosis with extensive stage small cell lung cancer in a patient with hep C and liver damage, chronic cytopenias. (6) Thrombocytopenia Is this a current diagnosis for this admission?: Yes - Time Time Spent with patient: 35 or more minutes Critical Time spent with patient: 35 or more minutes Medications reviewed and adjusted accordingly: Yes Anticipated discharge: Hospice - Inpatient Certification I certify that my determination is in accordance with my understanding of Medicare's requirements for reasonable and necessary INPATIENT services [42 CFR 412.3e].: Yes Medical Necessity: Need Close Monitoring Due to Risk of Patient Decompensation
[2016-11-18] MEDS: DEXAMETHASONE SOD PHOSPHATE INJ 4 MG/1 ML VIAL IV SCH ×3 (05:04→17:43)
[2016-11-18 06:05] LABS: HEMATOCRIT 23.9 % (37.9-51.0); HEMOGLOBIN 8.1 g/dL (13.5-17.0); HGB HCT DIFFERENCE 0.4; MEAN CORPUSCULAR HEMOGLOBIN 34.4 pg (27.0-33.4); MEAN CORPUSCULAR HGB CONC 33.9 g/dL (32.0-36.0); MEAN CORPUSCULAR VOLUME 102 fl (80-97); RED BLOOD COUNT 2.35 10^6/uL (4.35-5.55); RED CELL DISTRIBUTION WIDTH 17.3 % (11.5-14.0)
[2016-11-18 06:15] LABS: ALANINE AMINOTRANSFERASE 54 U/L (21-72); ALBUMIN 2.7 g/dL (3.5-5.0); ALKALINE PHOSPHATASE 162 U/L (38-126); ASPARTATE AMINO TRANSFERASE 43 U/L (17-59); BLOOD UREA NITROGEN 25 mg/dL (7-20); CALCIUM 9.2 mg/dL (8.4-10.2); CARBON DIOXIDE 28 mmol/L (22-30); CHLORIDE 110 mmol/L (98-107); CREATININE RESULT 0.61 mg/dL (0.52-1.25); GLUCOSE 132 mg/dL (75-110); PHOSPHORUS 3.9 mg/dL (2.5-4.5); POTASSIUM 4.6 mmol/L (3.6-5.0); SODIUM 141.9 mmol/L (137-145); TOTAL PROTEIN 5.8 g/dL (6.3-8.2)
[2016-11-18 06:19] LABS: ANION GAP 4 (5-19)
[2016-11-18 06:29] LABS: WHITE BLOOD COUNT 2.4 10^3/uL (4.0-10.5)
[2016-11-18 06:35] LABS: BAND NEUTROPHILS % (MANUAL) 7 % (3-5); BASOPHILS % (MANUAL) 0 % (0-2); EOSINOPHILS % (MANUAL) 0 % (0-6); LYMPHOCYTES % (MANUAL) 12 % (13-45); TOTAL CELLS COUNTED 100
[2016-11-18 06:40] LABS: ANISOCYTOSIS 1+; BURR CELLS SLIGHT; HYPOCHROMASIA SLIGHT; OVALOCYTES SLIGHT; POIKILOCYTOSIS 1+; TEAR DROP CELLS SLIGHT; TOXIC GRANULATION 2+
[2016-11-18] MEDS: RINGERS SOLUTION,LACTATED 1,000 ML IV PRN (08:15)
[2016-11-18] MEDS: MORPHINE SULFATE 10 MG/ML INJ IV PRN ×3 (09:28→20:20)
[2016-11-18] MEDS: PANTOPRAZOLE SODIUM 40 MG VIAL IV SCH ×2 (09:28→21:32)
[2016-11-18] MEDS ORDERED: ACETAMINOPHEN 325 MG TABLET PO PRN (09:37)
[2016-11-18] MEDS ORDERED: FENTANYL 25 MCG/HR PATCH.TD72 TOP SCH ×2 (10:00)
[2016-11-18 15:09] LABS: HEMATOCRIT 22.4 % (37.9-51.0); HGB HCT DIFFERENCE 0.7; MEAN CORPUSCULAR HEMOGLOBIN 34.9 pg (27.0-33.4); MEAN CORPUSCULAR HGB CONC 34.5 g/dL (32.0-36.0); MEAN CORPUSCULAR VOLUME 101 fl (80-97); RED BLOOD COUNT 2.22 10^6/uL (4.35-5.55); RED CELL DISTRIBUTION WIDTH 17.4 % (11.5-14.0); WHITE BLOOD COUNT 2.9 10^3/uL (4.0-10.5)
[2016-11-18 15:40] LABS: BAND NEUTROPHILS % (MANUAL) 7 % (3-5); BASOPHILS % (MANUAL) 0 % (0-2); EOSINOPHILS % (MANUAL) 0 % (0-6); LYMPHOCYTES % (MANUAL) 14 % (13-45); TOTAL CELLS COUNTED 100
[2016-11-18 15:42] LABS: TOXIC GRANULATION 1+
[2016-11-18 15:43] LABS: ANISOCYTOSIS 1+; OVALOCYTES SLIGHT; POIKILOCYTOSIS SLIGHT; POLYCHROMASIA SLIGHT; TEAR DROP CELLS SLIGHT
[2016-11-18 15:52] LABS: HEMOGLOBIN 7.7 g/dL (13.5-17.0)
--- NOTE | 2016-11-18 16:09 | PDOC PROGRESS REPORT ---
Subjective Progress Note for:: 11/18/16 Subjective:: Reason for visit: Follow-intractable nausea and vomiting, abdominal pain Hospital course: Per H&P "LORRAINE LUTZ is a 61 year old male Was sent as a direct admission from Dr. 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 He underwent CT scan of the chest abdomen and pelvis with findings of probable liver metastases, splenomegaly, mild ascites and diffuse osseous metastatic disease throughout the pelvis and vertebrae; interval decrease in size of the right hilar mass and aortopulmonary lymph nodes but interval increase in size of the right pleural effusion and right axillary lymph nodes with interval development of bony metastatic disease throughout the ribs. initially the patient felt much better than when he came in, in fact ate 2 meals of solid food and kept everything down. He c/o'd short of breath with minimal exertion. He was extremely emotionally labile, often tearful when discussing his situation with nursing staff and myself. He is clearly struggling with how to proceed in the management of his disease, at times telling the staff he wants to go home with hospice and just pain control but for me indicated he wanted everything done in an effort to extend his life for as long as possible to spend as much time with his grandson as he can. Since that time however the patient had several eventful nights with a significant turn for the worse regarding his mentation. He became combative, confused and noncooperative with staff so much so that he required physical and pharmaceutical restraints to keep him from harming himself and others. Nursing now reports a steady decline in his mental state with increasing though intermittent confusion and extreme emotional lability. After several lengthy discussions by Dr. Conrad with the family they have elected to pursue hospice care, we are awaiting [facility]'s input to decide on inpt vs home hospice. in the meantime we are transfusing in an effort to stabilize his H/H and improve his plts enough to undergo thoracentesis to alleviate some of his breathlessness. Subjective: he remains very emotionally labile and at times confused requiring additional sedative and anxiolytic meds. no complaints to me of SOA, chest pain , palpitations, N/V/D. ROS: not clear how reliable it is but as above. Physical Exam Vital Signs: Temp Pulse Resp BP Pulse Ox 97.9 F 89 14 152/69 H 97 11/18/16 13:14 11/18/16 13:14 11/18/16 13:14 11/18/16 13:14 11/18/16 13:14 Intake & Output 11/17/16 11/18/16 11/19/16 06:59 06:59 06:59 Intake Total 951 2108 631 Output Total 3450 300 Balance 951 -1342 331 Weight 94.2 kg 93 kg EXAM GENERAL: sleepy but will awaken and talk to me and follow commands; well developed, no obese; speech clear and thoughts lucid at present HEENT: normocephalic, atraumatic; no conjunctival injection, no scleral icterus ; oral mucosa moist; RESPIRATORY: no accessory muscle use, no increased WOB, diminished air entry bilaterally; no wheezes, rales, rhonchi; bilateral right greater than left inspiratory crackles persist CARDIO: no JVD; RRR; no systolic murmur; no tachycardia at present GI: soft; nondistended; normal bowel sounds; no rebound, rigidity, guarding; no grimace to palpation VASCULAR: no carotid bruit; no abdominal bruit; no pallor; 2+ radial, DP pulse ; normal capillary refill EXTREMITIES: no calf tender; no palpable cords in calf; no clubbing, cyanosis , trace bilat pedal edema PSYCH: flat affect at present SKIN: warm; moist; no petechiae; no telengectasias; no jaundice; no rash NEURO: following commands, normal patellar reflexes bilat Results Laboratory Results: 11/18/16 14:45 11/18/16 05:08 11/16/16 11/17/16 11/18/16 17:03 14:30 05:08 WBC 2.4 L D RBC 2.35 L Hgb 8.1 L Hct 23.9 L MCV 102 H MCH 34.4 H MCHC 33.9 RDW 17.3 H Plt Count 20 L* Seg Neutrophils % Not Reportable Lymphocytes % Not Reportable Monocytes % Not Reportable Eosinophils % Not Reportable Basophils % Not Reportable Absolute Neutrophils Not Reportable Absolute Lymphocytes Not Reportable Absolute Monocytes Not Reportable Absolute Eosinophils Not Reportable Absolute Basophils Not Reportable Sodium Potassium Chloride Carbon Dioxide Anion Gap BUN Creatinine Est GFR ( Amer) Est GFR (Non-Af Amer) Glucose Calcium Phosphorus Magnesium Total Bilirubin AST ALT Alkaline Phosphatase Ammonia Total Protein Albumin Vitamin B12 > 1000.0 H Folate 10.60 Blood Type O POSITIVE Antibody Screen NEGATIVE 11/18/16 11/18/16 11/18/16 05:08 05:08 14:45 WBC 2.9 L RBC 2.22 L Hgb 7.7 L Hct 22.4 L MCV 101 H MCH 34.9 H MCHC 34.5 RDW 17.4 H Plt Count 32 L Seg Neutrophils % Not Reportable Lymphocytes % Not Reportable Monocytes % Not Reportable Eosinophils % Not Reportable Basophils % Not Reportable Absolute Neutrophils Not Reportable Absolute Lymphocytes Not Reportable Absolute Monocytes Not Reportable Absolute Eosinophils Not Reportable Absolute Basophils Not Reportable Sodium 141.9 Potassium 4.6 Chloride 110 H Carbon Dioxide 28 Anion Gap 4 L BUN 25 H Creatinine 0.61 Est GFR ( Amer) > 60 Est GFR (Non-Af Amer) > 60 Glucose 132 H Calcium 9.2 Phosphorus 3.9 Magnesium 2.0 Total Bilirubin 2.0 H AST 43 ALT 54 Alkaline Phosphatase 162 H Ammonia 20.5 Total Protein 5.8 L Albumin 2.7 L Vitamin B12 Folate Blood Type Antibody Screen Labs reviewed, H&H trending down, platelets up after transfusion but only minimally so. Assessment & Plan - Diagnosis (1) Acute metabolic encephalopathy Is this a current diagnosis for this admission?: YesPlan: Unclear etiology. CT scan of the head chest abdomen and pelvis showed no acute intracranial abnormality and no obvious mass or midline shift to suggest metastatic disease, however does have at least moderate microvascular disease and atrophy perhaps predisposing to the onset of encephalopathy. I suspect is related somehow to metabolic derangements associated with his liver disease. He does have markedly elevated MCV but his folate and B12 are normal. He has known hepatitis C with cirrhosis and suspected metastatic disease to his liver with pancytopenia and in particular a severely low thrombocytopenia and borderline INR. ammonia level and lactic acid within normal limits. Waxing and waning course. Continue supportive care. (2) Dehydration Is this a current diagnosis for this admission?: YesPlan: stable (3) Intractable nausea and vomiting Qualifiers: Vomiting type: unspecified Qualified Code(s): R11.2 - Nausea with vomiting, unspecified Is this a current diagnosis for this admission?: YesPlan: Unclear etiology. Resolved (4) Metastatic cancer Is this a current diagnosis for this admission?: YesPlan: Imaging confirms widely metastatic disease, with worsening axillary adenopathy and presumed malignant pleural effusion. Patient would like to proceed with thoracentesis, states he's had this done over a year ago and had a remarkable improvement in his overall condition but his clinical deterioration and severe thrombocytopenia prevent invasive studies at this time and in spite of platelet transfusion. Dr. Conrad has ordered another transfusion for late this evening, hopefully if his platelets exceed 50,000 by morning we can perform this palliative and therapeutic thoracentesis. (5) Thrombocytopenia Is this a current diagnosis for this admission?: YesPlan: As above (6) Continuous severe abdominal pain Is this a current diagnosis for this admission?: YesPlan: Resolved. CT of the abdomen and pelvis was reassuring for acute pathology, worrisome only for persistent metastatic disease. (7) DNR (do not resuscitate) Is this a current diagnosis for this admission?: Yes - Time Time Spent with patient: 35 or more minutes Medications reviewed and adjusted accordingly: Yes Anticipated discharge: Hospice - Plan Summary Plan Summary: Plan is to continue to transfuse and attempt to get his blood level stable enough for thoracentesis in an effort to alleviate his breathlessness and offer some palliation prior to transfer for hospice care whether at home or inpatient as yet determined but hopefully in the next 24 hours.
--- NOTE | 2016-11-18 17:13 | PDOC PROGRESS REPORT ---
Subjective Progress Note for:: 11/18/16 Subjective:: Much more alert today, asking when he might go home. Physical Exam Vital Signs: Temp Pulse Resp BP Pulse Ox 98.0 F 78 19 126/63 H 100 11/18/16 16:31 11/18/16 16:31 11/18/16 16:31 11/18/16 16:31 11/18/16 16:31 Intake & Output 11/17/16 11/18/16 11/19/16 06:59 06:59 06:59 Intake Total 951 2108 631 Output Total 3450 300 Balance 951 -1342 331 Weight 94.2 kg 93 kg General appearance: PRESENT: no acute distress Head exam: PRESENT: normocephalic Eye exam: PRESENT: EOMI Respiratory exam: PRESENT: wheezes - and diminished BS on the right Cardiovascular exam: PRESENT: RRR GI/Abdominal exam: PRESENT: normal bowel sounds, soft Neurological exam: PRESENT: awake, oriented to person, oriented to situation Results Laboratory Results: 11/18/16 14:45 11/18/16 05:08 11/16/16 11/18/16 11/18/16 17:03 05:08 05:08 WBC 2.4 L D RBC 2.35 L Hgb 8.1 L Hct 23.9 L MCV 102 H MCH 34.4 H MCHC 33.9 RDW 17.3 H Plt Count 20 L* Seg Neutrophils % Not Reportable Lymphocytes % Not Reportable Monocytes % Not Reportable Eosinophils % Not Reportable Basophils % Not Reportable Absolute Neutrophils Not Reportable Absolute Lymphocytes Not Reportable Absolute Monocytes Not Reportable Absolute Eosinophils Not Reportable Absolute Basophils Not Reportable Sodium 141.9 Potassium 4.6 Chloride 110 H Carbon Dioxide 28 Anion Gap 4 L BUN 25 H Creatinine 0.61 Est GFR ( Amer) > 60 Est GFR (Non-Af Amer) > 60 Glucose 132 H Calcium 9.2 Phosphorus 3.9 Magnesium 2.0 Total Bilirubin 2.0 H AST 43 ALT 54 Alkaline Phosphatase 162 H Ammonia Total Protein 5.8 L Albumin 2.7 L Blood Type O POSITIVE Antibody Screen NEGATIVE 11/18/16 11/18/16 05:08 14:45 WBC 2.9 L RBC 2.22 L Hgb 7.7 L Hct 22.4 L MCV 101 H MCH 34.9 H MCHC 34.5 RDW 17.4 H Plt Count 32 L Seg Neutrophils % Not Reportable Lymphocytes % Not Reportable Monocytes % Not Reportable Eosinophils % Not Reportable Basophils % Not Reportable Absolute Neutrophils Not Reportable Absolute Lymphocytes Not Reportable Absolute Monocytes Not Reportable Absolute Eosinophils Not Reportable Absolute Basophils Not Reportable Sodium Potassium Chloride Carbon Dioxide Anion Gap BUN Creatinine Est GFR ( Amer) Est GFR (Non-Af Amer) Glucose Calcium Phosphorus Magnesium Total Bilirubin AST ALT Alkaline Phosphatase Ammonia 20.5 Total Protein Albumin Blood Type Antibody Screen Impressions: Chest X-Ray 11/15/16 16:01 IMPRESSION: Moderate lung volumes. Mild interstitial prominence without suspicious interval change. KUB X-Ray 11/15/16 16:01 IMPRESSION: Stable. Abdomen/Pelvis CT 11/16/16 06:00 IMPRESSION: 1. Suspicious appearance of the liver, heterogeneous with potential underlying metastases, mild edema and duct dilatation. 2. Hepatomegaly. 3. Mild ascites. 4. Osseous metastatic disease. Chest CT 11/16/16 06:00 IMPRESSION: Interval decrease in size the previously described right hilar mass as noted above. There is also been interval decrease in size of the multiple aortopulmonary window lymph nodes. Interval increase in size of the right pleural effusion. Interval increase in size of 1 of the right axillary lymph nodes as noted above. Interval development of bony metastatic disease as noted above. Other findings as noted above Head CT 11/16/16 06:00 IMPRESSION: MILD CHRONIC CHANGES OF ATROPHY AND MICROVASCULAR ISCHEMIA. NO ACUTE PROCESS. Abdomen X-Ray 11/17/16 00:00 IMPRESSION: NO RADIOGRAPHIC EVIDENCE FOR ACUTE ABDOMINAL DISEASE. Assessment & Plan - Diagnosis (1) DNR (do not resuscitate) Is this a current diagnosis for this admission?: YesPlan: Family is agreeing with his wishes and requesting an inpatient facility (2) Dehydration Is this a current diagnosis for this admission?: Yes (3) History of hepatitis C Is this a current diagnosis for this admission?: YesPlan: Unfortunately contributing to pancytopenia (4) Intractable nausea and vomiting Qualifiers: Vomiting type: unspecified Qualified Code(s): R11.2 - Nausea with vomiting, unspecified Is this a current diagnosis for this admission?: YesPlan: Seems to have resolved (5) Metastatic cancer Is this a current diagnosis for this admission?: YesPlan: Discussed mixed findings but would re-attempt to proceed with a thoracentesis (6) Thrombocytopenia Is this a current diagnosis for this admission?: YesPlan: Transfuse for possible thoracentesis - Time Time Spent with patient: 25-34 minutes Critical Time spent with patient: 15-24 minutes Medications reviewed and adjusted accordingly: Yes - Inpatient Certification Medical Necessity: Need Close Monitoring Due to Risk of Patient Decompensation
[2016-11-18] MEDS: LORAZEPAM INJ 2 MG/1 ML VIAL IV PRN (20:20)
[2016-11-19] MEDS: DEXAMETHASONE SOD PHOSPHATE INJ 4 MG/1 ML VIAL IV SCH ×5 (00:08→23:33)
[2016-11-19] MEDS ORDERED: ACETAMINOPHEN 325 MG TABLET PO PRN (01:00)
[2016-11-19] MEDS: MORPHINE SULFATE 10 MG/ML INJ IV PRN ×5 (04:21→23:42)
[2016-11-19 06:46] LABS: HEMATOCRIT 25.2 % (37.9-51.0); HEMOGLOBIN 8.6 g/dL (13.5-17.0); HGB HCT DIFFERENCE 0.6; MEAN CORPUSCULAR HGB CONC 34.1 g/dL (32.0-36.0); MEAN CORPUSCULAR VOLUME 100 fl (80-97); RED BLOOD COUNT 2.53 10^6/uL (4.35-5.55); RED CELL DISTRIBUTION WIDTH 17.6 % (11.5-14.0); WHITE BLOOD COUNT 1.9 10^3/uL (4.0-10.5)
[2016-11-19] MEDS: RINGERS SOLUTION,LACTATED 1,000 ML IV PRN (07:14)
--- NOTE | 2016-11-19 08:14 | PDOC PROGRESS REPORT ---
Subjective Progress Note for:: 11/19/16 Subjective:: Pt feeling better this am, really wants to go home but family considering hospice inpt for him Physical Exam Vital Signs: Temp Pulse Resp BP Pulse Ox 97.6 F 68 20 135/71 H 100 11/19/16 03:23 11/19/16 03:23 11/19/16 03:23 11/19/16 03:23 11/19/16 03:23 Intake & Output 11/18/16 11/19/16 11/20/16 06:59 06:59 06:59 Intake Total 2108 1797 Output Total 3450 6785 Balance -1342 -378 Weight 93 kg 96.6 kg General appearance: PRESENT: no acute distress, well-developed, well-nourished Head exam: PRESENT: atraumatic, normocephalic Eye exam: PRESENT: conjunctiva pink, EOMI, PERRLA. ABSENT: scleral icterus Ear exam: PRESENT: normal external ear exam Mouth exam: PRESENT: moist, tongue midline Neck exam: ABSENT: carotid bruit, JVD, lymphadenopathy, thyromegaly Respiratory exam: PRESENT: clear to auscultation glen. ABSENT: rales, rhonchi, wheezes Cardiovascular exam: PRESENT: RRR. ABSENT: diastolic murmur, rubs, systolic murmur Pulses: PRESENT: normal dorsalis pedis pul Vascular exam: PRESENT: normal capillary refill GI/Abdominal exam: PRESENT: normal bowel sounds, soft. ABSENT: distended, guarding, mass, organolmegaly, rebound, tenderness Rectal exam: PRESENT: deferred Extremities exam: PRESENT: full ROM. ABSENT: calf tenderness, clubbing, pedal edema Neurological exam: PRESENT: alert, awake, oriented to person, oriented to place , oriented to time, oriented to situation, CN II-XII grossly intact. ABSENT: motor sensory deficit Psychiatric exam: PRESENT: appropriate affect, normal mood. ABSENT: homicidal ideation, suicidal ideation Skin exam: PRESENT: dry, intact, warm. ABSENT: cyanosis, rash Results Laboratory Results: 11/19/16 05:20 11/18/16 05:08 11/16/16 11/18/16 11/19/16 17:03 14:45 05:20 WBC 2.9 L 1.9 L RBC 2.22 L 2.53 L Hgb 7.7 L 8.6 L Hct 22.4 L 25.2 L MCV 101 H 100 H MCH 34.9 H 34.0 H MCHC 34.5 34.1 RDW 17.4 H 17.6 H Plt Count 32 L 26 L* Seg Neutrophils % Not Reportable Lymphocytes % Not Reportable Monocytes % Not Reportable Eosinophils % Not Reportable Basophils % Not Reportable Absolute Neutrophils Not Reportable Absolute Lymphocytes Not Reportable Absolute Monocytes Not Reportable Absolute Eosinophils Not Reportable Absolute Basophils Not Reportable Blood Type O POSITIVE Antibody Screen NEGATIVE Impressions: Chest X-Ray 11/15/16 16:01 IMPRESSION: Moderate lung volumes. Mild interstitial prominence without suspicious interval change. KUB X-Ray 11/15/16 16:01 IMPRESSION: Stable. Abdomen/Pelvis CT 11/16/16 06:00 IMPRESSION: 1. Suspicious appearance of the liver, heterogeneous with potential underlying metastases, mild edema and duct dilatation. 2. Hepatomegaly. 3. Mild ascites. 4. Osseous metastatic disease. Chest CT 11/16/16 06:00 IMPRESSION: Interval decrease in size the previously described right hilar mass as noted above. There is also been interval decrease in size of the multiple aortopulmonary window lymph nodes. Interval increase in size of the right pleural effusion. Interval increase in size of 1 of the right axillary lymph nodes as noted above. Interval development of bony metastatic disease as noted above. Other findings as noted above Head CT 11/16/16 06:00 IMPRESSION: MILD CHRONIC CHANGES OF ATROPHY AND MICROVASCULAR ISCHEMIA. NO ACUTE PROCESS. Abdomen X-Ray 11/17/16 00:00 IMPRESSION: NO RADIOGRAPHIC EVIDENCE FOR ACUTE ABDOMINAL DISEASE. Assessment & Plan - Diagnosis (1) Stage 4 lung cancer Qualifiers: Laterality: right Qualified Code(s): C34.91 - Malignant neoplasm of unspecified part of right bronchus or lung Is this a current diagnosis for this admission?: YesPlan: Pt recently w/ systemic chemorx, seems ready for hospice, family and pt taking w / [facility] for inpt hospice placement (2) Acute metabolic encephalopathy Is this a current diagnosis for this admission?: YesPlan: Seems improved, likely hepatic enceph vs med related, better now, pt seems A/O x 3 now. - Time Time Spent with patient: 25-34 minutes Critical Time spent with patient: 25-34 minutes - Inpatient Certification Based on my medical assessment, after consideration of the patient's comorbidities, presenting symptoms, or acuity I expect that the services needed warrant INPATIENT care.: Yes I certify that my determination is in accordance with my understanding of Medicare's requirements for reasonable and necessary INPATIENT services [42 CFR 412.3e].: Yes Medical Necessity: Risk of Complication if Not Cared For in Hospital
[2016-11-19] MEDS ORDERED: FUROSEMIDE 40 MG TABLET PO ONE (10:30)
[2016-11-19 14:48] LABS: HEMATOCRIT 26.5 % (37.9-51.0); HEMOGLOBIN 9.1 g/dL (13.5-17.0); HGB HCT DIFFERENCE 0.8; MEAN CORPUSCULAR HEMOGLOBIN 34.2 pg (27.0-33.4); MEAN CORPUSCULAR HGB CONC 34.4 g/dL (32.0-36.0); MEAN CORPUSCULAR VOLUME 100 fl (80-97); RED BLOOD COUNT 2.66 10^6/uL (4.35-5.55); RED CELL DISTRIBUTION WIDTH 17.5 % (11.5-14.0); WHITE BLOOD COUNT 2.5 10^3/uL (4.0-10.5)
[2016-11-19 15:09] LABS: BAND NEUTROPHILS % (MANUAL) 3 % (3-5); BASOPHILS % (MANUAL) 0 % (0-2); EOSINOPHILS % (MANUAL) 0 % (0-6); LYMPHOCYTES % (MANUAL) 10 % (13-45); NUCLEATED RED BLOOD CELLS 1 /100 WBC (0); TOTAL CELLS COUNTED 100; TOXIC GRANULATION 2+; TOXIC VACUOLATION PRESENT
[2016-11-19 15:10] LABS: ANISOCYTOSIS 2+; HYPOCHROMASIA 1+; OVALOCYTES 1+; POIKILOCYTOSIS 1+; POLYCHROMASIA SLIGHT; SCHISTOCYTES SLIGHT
--- NOTE | 2016-11-19 15:53 | PDOC PROGRESS REPORT ---
Subjective Progress Note for:: 11/19/16 Subjective:: Reason for visit: Follow-intractable nausea and vomiting, abdominal pain Hospital course: Per H&P "LORRAINE LUTZ is a 61 year old male Was sent as a direct admission from Dr. 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 Since his return home he has been sick and in pain Last chemotherapy was on November 11" Patient was admitted to the hospital and started on aggressive fluid rehydration and antiemetics with good improvement in his symptoms. He underwent CT scan of the chest abdomen and pelvis with findings of probable liver metastases, splenomegaly, mild ascites and diffuse osseous metastatic disease throughout the pelvis and vertebrae; interval decrease in size of the right hilar mass and aortopulmonary lymph nodes but interval increase in size of the right pleural effusion and right axillary lymph nodes with interval development of bony metastatic disease throughout the ribs. initially the patient felt much better than when he came in, in fact ate 2 meals of solid food and kept everything down. He c/o'd short of breath with minimal exertion. He was extremely emotionally labile, often tearful when discussing his situation with nursing staff and myself. He is clearly struggling with how to proceed in the management of his disease, at times telling the staff he wants to go home with hospice and just pain control but for me indicated he wanted everything done in an effort to extend his life for as long as possible to spend as much time with his grandson as he can. Since that time however the patient had several eventful nights with a significant turn for the worse regarding his mentation. He became combative, confused and noncooperative with staff so much so that he required physical and pharmaceutical restraints to keep him from harming himself and others. Nursing now reports a steady decline in his mental state with increasing though intermittent confusion and extreme emotional lability. After several lengthy discussions by Dr. Conrad with the family they have elected to pursue hospice care, we are awaiting [facility]'s input to decide on inpt vs home hospice. in the meantime we are transfusing in an effort to stabilize his H/H and improve his plts enough to undergo thoracentesis to alleviate some of his breathlessness. Subjective: He is less confused than before and much more cooperative with staff now. Family remains at the bedside now largely 18/04 which actually seems to help. He denies chest pain, palpitations, fever, chills, with resolution of his nausea and vomiting. ROS: per HPI plus a total of 10 systems reviewed, pertinent positives and negatives noted above, remaining systems negative. Physical Exam Vital Signs: Temp Pulse Resp BP Pulse Ox 97.9 F 73 20 127/65 H 95 11/19/16 12:27 11/19/16 12:27 11/19/16 12:27 11/19/16 12:27 11/19/16 12:27 Intake & Output 11/18/16 11/19/16 11/20/16 06:59 06:59 06:59 Intake Total 2108 1797 411 Output Total 3450 2175 500 Balance -1342 -378 -89 Weight 93 kg 96.6 kg EXAM GENERAL: Awake and alert and in no acute distress; well developed, no obese; speech clear and thoughts lucid at present HEENT: normocephalic, atraumatic; no conjunctival injection, no scleral icterus ; oral mucosa moist; RESPIRATORY: no accessory muscle use, no increased WOB, diminished air entry bilaterally; no wheezes, new bibasilar rales but no rhonchi CARDIO: no JVD; RRR; no systolic murmur; no tachycardia at present GI: soft; nondistended; normal bowel sounds; no rebound, rigidity, guarding; no grimace to palpation VASCULAR: no carotid bruit; no abdominal bruit; no pallor; 2+ radial, DP pulse ; normal capillary refill EXTREMITIES: no calf tender; no palpable cords in calf; no clubbing, cyanosis , trace bilat pedal edema PSYCH: Normal mood and affect are present SKIN: warm; moist; no petechiae; no telengectasias; no jaundice; no rash NEURO: following commands, normal patellar reflexes bilat Results Laboratory Results: 11/19/16 14:15 11/18/16 05:08 11/16/16 11/18/16 11/19/16 17:03 14:45 05:20 WBC 2.9 L 1.9 L RBC 2.22 L 2.53 L Hgb 7.7 L 8.6 L Hct 22.4 L 25.2 L MCV 101 H 100 H MCH 34.9 H 34.0 H MCHC 34.5 34.1 RDW 17.4 H 17.6 H Plt Count 32 L 26 L* Seg Neutrophils % Lymphocytes % Monocytes % Eosinophils % Basophils % Absolute Neutrophils Absolute Lymphocytes Absolute Monocytes Absolute Eosinophils Absolute Basophils Blood Type O POSITIVE Antibody Screen NEGATIVE 11/19/16 14:15 WBC 2.5 L RBC 2.66 L Hgb 9.1 L Hct 26.5 L MCV 100 H MCH 34.2 H MCHC 34.4 RDW 17.5 H Plt Count 49 L Seg Neutrophils % Not Reportable Lymphocytes % Not Reportable Monocytes % Not Reportable Eosinophils % Not Reportable Basophils % Not Reportable Absolute Neutrophils Not Reportable Absolute Lymphocytes Not Reportable Absolute Monocytes Not Reportable Absolute Eosinophils Not Reportable Absolute Basophils Not Reportable Blood Type Antibody Screen Labs reviewed, developing leukopenia and persistent macrocytic anemia and thrombocytopenia. He apparently did not receive his platelet transfusion last night Assessment & Plan - Diagnosis (1) Acute metabolic encephalopathy Is this a current diagnosis for this admission?: YesPlan: Resolved. Unclear etiology. CT scan of the head chest abdomen and pelvis showed no acute intracranial abnormality and no obvious mass or midline shift to suggest metastatic disease, however does have at least moderate microvascular disease and atrophy perhaps predisposing to the onset of encephalopathy. I suspect is related somehow to metabolic derangements associated with his liver disease. He does have markedly elevated MCV but his folate and B12 are normal. He has known hepatitis C with cirrhosis and suspected metastatic disease to his liver with pancytopenia and in particular a severely low thrombocytopenia and borderline INR. ammonia level and lactic acid within normal limits. Waxing and waning course. Continue supportive care. (2) Dehydration Is this a current diagnosis for this admission?: YesPlan: Resolved and now bit on the wet side. We will hold his IV fluids and give a single dose of oral Lasix this morning. (3) Intractable nausea and vomiting Qualifiers: Vomiting type: unspecified Qualified Code(s): R11.2 - Nausea with vomiting, unspecified Is this a current diagnosis for this admission?: YesPlan: Unclear etiology. Resolved (4) Metastatic cancer Is this a current diagnosis for this admission?: YesPlan: Imaging confirms widely metastatic disease, with worsening axillary adenopathy and presumed malignant pleural effusion. Patient would like to proceed with thoracentesis, states he's had this done over a year ago and had a remarkable improvement in his overall condition but his clinical deterioration and severe thrombocytopenia prevent invasive studies at this time and in spite of platelet transfusion. Dr. Conrad has ordered another platelet transfusion, hopefully if his platelets reach 50,000 we can perform this palliative and therapeutic thoracentesis. There are no viable treatment options left for his underlying small cell carcinoma given his debilitated state he likely would not survive. As such he and the family are requesting hospice services. (5) Thrombocytopenia Is this a current diagnosis for this admission?: YesPlan: As above (6) Continuous severe abdominal pain Is this a current diagnosis for this admission?: YesPlan: Resolved. CT of the abdomen and pelvis was reassuring for acute pathology, worrisome only for persistent metastatic disease. (7) DNR (do not resuscitate) Is this a current diagnosis for this admission?: Yes - Time Time Spent with patient: 25-34 minutes Anticipated discharge: Hospice Within: within 24 hours - Plan Summary Plan Summary: Anticipate discharge tomorrow one where the other, whether or not he receives his thoracentesis. Disposition remains a bit of a mystery at this time as the family waffles between inpatient hospice and at home hospice. Case was discussed with palliative care team and [facility]
[2016-11-20] MEDS: MORPHINE SULFATE 10 MG/ML INJ IV PRN ×2 (04:14→12:00)
[2016-11-20] MEDS: DEXAMETHASONE SOD PHOSPHATE INJ 4 MG/1 ML VIAL IV SCH ×2 (06:43→11:11)
--- NOTE | 2016-11-20 10:36 | PDOC PROGRESS REPORT ---
Subjective Progress Note for:: 11/20/16 Subjective:: Today had a long discussion with patient, also had discussion with and son. Recommended going ahead with inpatient hospice care with [facility] hosp[facility]. They're unable to care from at home, and we discussed that is probably imminent. To that extent, transition to inpatient hospice would be reasonable. After long discussion, we discussed his case for about 45 minutes, they all agreed to go towards this approach. The patient also agreed. Physical Exam Vital Signs: Temp Pulse Resp BP Pulse Ox 98.1 F 78 24 H 128/65 H 98 11/20/16 03:18 11/20/16 03:18 11/20/16 03:18 11/20/16 03:18 11/20/16 03:18 Intake & Output 11/19/16 11/20/16 11/21/16 06:59 06:59 06:59 Intake Total 2097 1193 Output Total 2175 3025 Balance -78 -1832 Weight 96.6 kg 96.9 kg General appearance: PRESENT: no acute distress Head exam: PRESENT: atraumatic Eye exam: PRESENT: scleral icterus Respiratory exam: PRESENT: accessory muscle use Cardiovascular exam: PRESENT: RRR. ABSENT: diastolic murmur, rubs, systolic murmur GI/Abdominal exam: PRESENT: distended Rectal exam: PRESENT: deferred Skin exam: PRESENT: jaundice Results Laboratory Results: 11/19/16 14:15 11/18/16 05:08 11/16/16 11/19/16 17:03 14:15 WBC 2.5 L RBC 2.66 L Hgb 9.1 L Hct 26.5 L MCV 100 H MCH 34.2 H MCHC 34.4 RDW 17.5 H Plt Count 49 L Seg Neutrophils % Not Reportable Lymphocytes % Not Reportable Monocytes % Not Reportable Eosinophils % Not Reportable Basophils % Not Reportable Absolute Neutrophils Not Reportable Absolute Lymphocytes Not Reportable Absolute Monocytes Not Reportable Absolute Eosinophils Not Reportable Absolute Basophils Not Reportable Blood Type O POSITIVE Antibody Screen NEGATIVE Impressions: KUB X-Ray 11/15/16 16:01 IMPRESSION: Stable. Abdomen/Pelvis CT 11/16/16 06:00 IMPRESSION: 1. Suspicious appearance of the liver, heterogeneous with potential underlying metastases, mild edema and duct dilatation. 2. Hepatomegaly. 3. Mild ascites. 4. Osseous metastatic disease. Chest CT 11/16/16 06:00 IMPRESSION: Interval decrease in size the previously described right hilar mass as noted above. There is also been interval decrease in size of the multiple aortopulmonary window lymph nodes. Interval increase in size of the right pleural effusion. Interval increase in size of 1 of the right axillary lymph nodes as noted above. Interval development of bony metastatic disease as noted above. Other findings as noted above Head CT 11/16/16 06:00 IMPRESSION: MILD CHRONIC CHANGES OF ATROPHY AND MICROVASCULAR ISCHEMIA. NO ACUTE PROCESS. Abdomen X-Ray 11/17/16 00:00 IMPRESSION: NO RADIOGRAPHIC EVIDENCE FOR ACUTE ABDOMINAL DISEASE. Thoracentesis Ultrasound 11/19/16 00:00 IMPRESSION: SUCCESSFUL THORACENTESIS USING ULTRASOUND GUIDANCE. Chest X-Ray 11/19/16 18:11 IMPRESSION: STABLE APPEARANCE THE CHEST POST THORACENTESIS. NO PNEUMOTHORAX. Assessment & Plan - Diagnosis (1) Stage 4 lung cancer Qualifiers: Laterality: right Qualified Code(s): C34.91 - Malignant neoplasm of unspecified part of right bronchus or lung Is this a current diagnosis for this admission?: YesPlan: As above no further treatment possible her planned. Hospice inpatient planned. (2) Acute metabolic encephalopathy Is this a current diagnosis for this admission?: YesPlan: Seems improved, still confused from time to time but no further workup needed. - Time Time Spent with patient: 35 or more minutes Critical Time spent with patient: 35 or more minutes Anticipated discharge: Hospice Within: within 24 hours
[2016-11-20] MEDS ORDERED: SCOPOLAMINE HYDROBROMIDE 1.5 MG PATCH.TD72 TD ONE (11:00)
[2016-11-20] MEDS ORDERED: FUROSEMIDE 40 MG TABLET PO ONE (11:00)
--- NOTE | 2016-11-20 13:02 | PDOC DISCHARGE SUMMARY ---
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 Nevertheless, this seems to have resolved and he is back to baseline. (2) Dehydration Is this a current diagnosis for this admission?: YesSummary: Resolved with IV fluids. (3) Intractable nausea and vomiting Is this a current diagnosis for this admission?: YesSummary: Again an unclear etiology here is no acute pathologic process was ever identified. The nausea and vomiting resolved within the first 24 hours and he has been tolerating a diet ever since. (4) Metastatic cancer Is this a current diagnosis for this admission?: YesSummary: There are no good treatment options left for his metastatic small cell cancer and he and his family have elected to pursue hospice. Oncology has been involved in his care throughout his hospitalization. Please see their notes for details. (5) Thrombocytopenia Is this a current diagnosis for this admission?: YesSummary: The patient received transfusion during his hospitalization enough so to get his platelets elevated to a level allowing palliative thoracentesis for presumed malignant effusion. (6) Continuous severe abdominal pain Is this a current diagnosis for this admission?: YesSummary: Most of his pain is related to bone pain from his metastatic disease. He has not complained of abdominal pain since admission. (7) DNR (do not resuscitate) Is this a current diagnosis for this admission?: Yes - Additional Information Resuscitation Status: Do Not Resuscitate Discharge Diet: Regular Discharge Activity: Activity As Tolerated Home Medications: Fentanyl [Duragesic 25 mcg/hr Transdermal Patch] 1 patch TOP Q3DAYS 11/15/16 Oxycodone HCl [Oxycontin] 60 mg PO BID 11/15/16 Oxycodone HCl [Roxicodone] 60 mg PO Q4HP PRN 11/15/16 Zolpidem Tartrate [Ambien] 10 mg PO QHS 11/15/16 Acetaminophen [Tylenol 325 mg Tablet] 650 mg PO .BEFORE 1ST UNIT PRN tablet Ipratropium/Albuterol Sulfate [Duoneb 3 ml Ampul] 3 ml NEB RTQ6HP PRN vial.neb 11/20/16 Lorazepam [Ativan 1 mg Tablet] 0.5 mg PO Q6 tablet 11/20/16 History of Present Illness Patient complains of: Intractable nausea and vomiting with epigastric pain History of Present Illness: LORRAINE LUTZ is a 61 year old male Was sent as a direct admission from Dr. Conrad's office with chief complaint of intractable nausea vomiting epigastric pain for the past 2 days Patient has a known history of metastatic small cell CA to bone and liver Patient underwent a week ago vertebroplasty at [facility] Since his return home he has been sick and in pain Last chemotherapy was on November 11" Hospital Course Hospital Course: Patient was admitted to the hospital and started on aggressive fluid rehydration and antiemetics with good improvement in his symptoms. He underwent CT scan of the chest abdomen and pelvis with findings of probable liver metastases, splenomegaly, mild ascites and diffuse osseous metastatic disease throughout the pelvis and vertebrae; interval decrease in size of the right hilar mass and aortopulmonary lymph nodes but interval increase in size of the right pleural effusion and right axillary lymph nodes with interval development of bony metastatic disease throughout the ribs. initially the patient felt much better than when he came in, in fact ate 2 meals of solid food and kept everything down. He c/o'd short of breath with minimal exertion. He was extremely emotionally labile, often tearful when discussing his situation with nursing staff and myself. He is clearly struggling with how to proceed in the management of his disease, at times telling the staff he wants to go home with hospice and just pain control but for me indicated he wanted everything done in an effort to extend his life for as long as possible to spend as much time with his grandson as he can. Since that time however the patient had several eventful nights with a significant turn for the worse regarding his mentation. He became combative, confused and noncooperative with staff so much so that he required physical and pharmaceutical restraints to keep him from harming himself and others. Nursing now reports a steady decline in his mental state with increasing though intermittent confusion and extreme emotional lability. After several lengthy discussions by Dr. Conrad with the family they have elected to pursue hospice care, we are awaiting [facility]'s input to decide on inpt vs home hospice. in the meantime we are transfusing in an effort to stabilize his H/H and improve his plts enough to undergo thoracentesis to alleviate some of his breathlessness. His hospital course was complicated significantly by his waxing and waning mental state, at this time however he appears to be back to baseline. After much discussion with the patient and his family they have come to realize there are no viable treatment options available to him and they have elected a more conservative approach seeking comfort measures and end-of-life treatment through hospice. Arrangements made for transfer to [facility] hospice facility today. Physical Exam Vital Signs: Temp Pulse Resp BP Pulse Ox 97.9 F 73 20 124/58 L 95 11/20/16 07:00 11/20/16 07:00 11/20/16 07:00 11/20/16 07:00 11/20/16 07:00 Intake & Output 11/19/16 11/20/16 11/21/16 06:59 06:59 06:59 Intake Total 2093 1193 Output Total 0393 3025 Balance -78 -1832 Weight 96.6 kg 96.9 kg EXAM GENERAL: Awake and alert and in no acute distress; well developed, no obese; speech clear and thoughts lucid at present HEENT: normocephalic, atraumatic; no conjunctival injection, no scleral icterus ; oral mucosa moist; heavy secretions noted. RESPIRATORY: no accessory muscle use, no increased WOB, diminished air entry bilaterally; no wheezes, new bibasilar rales but no rhonchi CARDIO: no JVD; RRR; no systolic murmur; no tachycardia at present GI: soft; nondistended; normal bowel sounds; no rebound, rigidity, guarding; no grimace to palpation VASCULAR: no carotid bruit; no abdominal bruit; no pallor; 2+ radial, DP pulse ; normal capillary refill EXTREMITIES: no calf tender; no palpable cords in calf; no clubbing, cyanosis , trace bilat pedal edema PSYCH: Normal mood and affect are present SKIN: warm; moist; no petechiae; no telengectasias; no jaundice; no rash NEURO: following commands, normal patellar reflexes bilat Results Laboratory Results: 11/19/16 14:15 11/18/16 05:08 11/16/16 11/19/16 17:03 14:15 WBC 2.5 L RBC 2.66 L Hgb 9.1 L Hct 26.5 L MCV 100 H MCH 34.2 H MCHC 34.4 RDW 17.5 H Plt Count 49 L Seg Neutrophils % Not Reportable Lymphocytes % Not Reportable Monocytes % Not Reportable Eosinophils % Not Reportable Basophils % Not Reportable Absolute Neutrophils Not Reportable Absolute Lymphocytes Not Reportable Absolute Monocytes Not Reportable Absolute Eosinophils Not Reportable Absolute Basophils Not Reportable Blood Type O POSITIVE Antibody Screen NEGATIVE Impressions: KUB X-Ray 11/15/16 16:01 IMPRESSION: Stable. Abdomen/Pelvis CT 11/16/16 06:00 IMPRESSION: 1. Suspicious appearance of the liver, heterogeneous with potential underlying metastases, mild edema and duct dilatation. 2. Hepatomegaly. 3. Mild ascites. 4. Osseous metastatic disease. Chest CT 11/16/16 06:00 IMPRESSION: Interval decrease in size the previously described right hilar mass as noted above. There is also been interval decrease in size of the multiple aortopulmonary window lymph nodes. Interval increase in size of the right pleural effusion. Interval increase in size of 1 of the right axillary lymph nodes as noted above. Interval development of bony metastatic disease as noted above. Other findings as noted above Head CT 11/16/16 06:00 IMPRESSION: MILD CHRONIC CHANGES OF ATROPHY AND MICROVASCULAR ISCHEMIA. NO ACUTE PROCESS. Abdomen X-Ray 11/17/16 00:00 IMPRESSION: NO RADIOGRAPHIC EVIDENCE FOR ACUTE ABDOMINAL DISEASE. Thoracentesis Ultrasound 11/19/16 00:00 IMPRESSION: SUCCESSFUL THORACENTESIS USING ULTRASOUND GUIDANCE. Chest X-Ray 11/19/16 18:11 IMPRESSION: STABLE APPEARANCE THE CHEST POST THORACENTESIS. NO PNEUMOTHORAX. Qualifiers PATEINT BEING DISCHARGED WITH ANY OF THE FOLLOWING DIAGNOSIS?: No VTE patient discharged on overlapping Therapy?: Yes Plan Discharge Plan: Transfer for inpatient hospice as noted above. Time Spent: Greater than 30 Minutes
[2016-11-20 13:22] VITALS: BP 139/74
== END 2016-11-20 16:07 | disposition hospice, inpatient (51) | DRG 391 ==
LOC: 3N 12:55
PROVIDERS: ADMIT Emergency Medicine; ATTEND Emergency Medicine
PROC: 3E0F73Z Introduction of Anti-inflammatory into Respiratory Tract, Via Natural or Artificial Opening (ICD-10-PCS; 2016-11-16)
PROC: 30233N1 Transfusion of Nonautologous Red Blood Cells into Peripheral Vein, Percutaneous Approach (ICD-10-PCS; 2016-11-17)
PROC: 30233R1 Transfusion of Nonautologous Platelets into Peripheral Vein, Percutaneous Approach (ICD-10-PCS; 2016-11-17)
PROC: 0W993ZX Drainage of Right Pleural Cavity, Percutaneous Approach, Diagnostic (ICD-10-PCS; principal; 2016-11-19)
PROC: BB4BZZZ Ultrasonography of Pleura (ICD-10-PCS; 2016-11-19)
DX: R11.2 Nausea with vomiting, unspecified (principal); G93.41 Metabolic encephalopathy; C79.51 Secondary malignant neoplasm of bone; C78.7 Secondary malignant neoplasm of liver and intrahepatic bile duct; C34.91 Malignant neoplasm of unspecified part of right bronchus or lung; E86.0 Dehydration; T45.1X5A Adverse effect of antineoplastic and immunosuppressive drugs, initial encounter; D69.6 Thrombocytopenia, unspecified; G89.3 Neoplasm related pain (acute) (chronic); I10 Essential (primary) hypertension; J44.9 Chronic obstructive pulmonary disease, unspecified; K21.9 Gastro-esophageal reflux disease without esophagitis; R59.9 Enlarged lymph nodes, unspecified; D64.9 Anemia, unspecified; Z66 Do not resuscitate; Z86.19 Personal history of other infectious and parasitic diseases; Z78.1 Physical restraint status; Z79.899 Other long term (current) drug therapy; Z87.891 Personal history of nicotine dependence; Z82.49 Family history of ischemic heart disease and other diseases of the circulatory system; Z80.3 Family history of malignant neoplasm of breast; Z88.6 Allergy status to analgesic agent
CPT/HCPCS: 32555; 36415; 36430; 70450; 71010; 71260; 74000; 74020; 74177; 80048; 80053; 82140; 82150; 82607; 82746; 82803; 83605; 83690; 83735; 84100; 85025; 85027; 85610; 86850; 86900; 86901; 86920; 94640; J1100; J2060; J2270; J2550; J3490; J7030; J7120; J7620; P9016; P9035; S0164